=== PATIENT | female | born 1950 | race Caucasian/White ===

== ENCOUNTER 2020-09-07 18:28 | Emergency (ER) | payer MEDICARE, OTHER ==
[~2020-09-07] VITALS: Ht 170.2 cm; Wt 57.6 kg
[2020-09-07] MEDS ORDERED: HYDROCODONE/APAP 5MG-325MG TAB PO ONE (19:00)
[2020-09-07] MEDS ORDERED: HYDROCODONE/APAP 5MG-325MG TAB ONE (19:16)
[2020-09-07 19:45] VITALS: BP 169/82
== END 2020-09-07 19:45 | disposition home or self-care (01) ==
LOC: FSED 18:48
DX: M54.16 Radiculopathy, lumbar region (principal); I10 Essential (primary) hypertension; E78.5 Hyperlipidemia, unspecified; E03.9 Hypothyroidism, unspecified
CPT/HCPCS: 72110; 99283

== ENCOUNTER → 2024-12-18 | Day surgery (SDC) | payer MEDICARE, OTHER ==
[2024-12-13 10:31] LABS: BASOPHILS % 1.0 % (0.0-1.0); EOSINOPHILS % 1.8 % (0.0-6.0); LYMPHOCYTES % 25.0 % (18.0-39.1); MONOCYTES % 7.7 % (4.4-11.3); NEUTROPHILS % 64.4 % (38.7-80.0); RED CELL DISTRIBUTION WIDTH 12.9 % (11.7-14.4)
[~2024-12-18] MED LIST: ADVIL PM CAPLE1 EACH PO; ALIGN4 MG PO; ASPIRIN81 MG PO; ATORVASTATIN CA20 MG PO; B COMPLEX1 EACH PO; BUDESONIDE EC3 MG PO; BYSTOLIC5 MG PO; CITRACAL + BON1 EACH PO; FINACEA50 G1 PO; GLUCAGON FOR INJ 1 MG VIAL ONE; IMODIUM2 MG PO; LACTATED RINGER'S 1,000 ML ONE; LIDOCAINE HCL 2% LOCAL INJ 5 ML SDV VIAL INJ ONE; LUMIGAN2.5 M1 OP; MELATONIN1 MG PO; PROPOFOL IV EMULSION 10 MG/ML 20 ML VIAL ONE; SYNTHROID112 MCG PO; VITAMIN D350 MCG PO
[2024-12-18 16:39] VITALS: TEMP 98
[2024-12-18 17:10] VITALS: BP 134/77; PULSE 59; RESP 16; O2SAT 98
== END | disposition home or self-care (01) ==
LOC: OR 13:46
PROVIDERS: ATTEND Internal Medicine Gastroenterology
DX: K52.832 Lymphocytic colitis (principal); D12.0 Benign neoplasm of cecum; K63.5 Polyp of colon; K64.4 Residual hemorrhoidal skin tags; I10 Essential (primary) hypertension; E78.00 Pure hypercholesterolemia, unspecified; F10.90 Alcohol use, unspecified, uncomplicated; E03.9 Hypothyroidism, unspecified; E07.9 Disorder of thyroid, unspecified; Z88.2 Allergy status to sulfonamides; Z79.82 Long term (current) use of aspirin; Z79.899 Other long term (current) drug therapy; Z79.890 Hormone replacement therapy; Z01.810 Encounter for preprocedural cardiovascular examination; Z01.812 Encounter for preprocedural laboratory examination
CPT/HCPCS: 36415; 45380; 45385; 85025; 88304; 88305; 93005; J1610; J2003; J2704; J7121; 45384